=== PATIENT | female | born 1995 | race African-American/Black ===

== ENCOUNTER 2021-03-27 21:48 | Emergency (ER) | payer SELFPAY ==
[~2021-03-27] VITALS: Ht 182.9 cm; Wt 112.7 kg
[2021-03-27] MEDS ORDERED: LORazepam 1 MG TABLET PO ONE (22:45)
[2021-03-27] MEDS ORDERED: ACETAMINOPHEN 500 MG TABLET PO ONE (22:45)
[2021-03-27] MEDS ORDERED: GuaiFENesin/D-METHORPHAN [SUGAR-FREE] 200-20MG/10 ML SYRUP UDCUP PO ONE (22:45)
[2021-03-27] MEDS ORDERED: IBUPROFEN 600 MG TABLET PO ONE (22:45)
[2021-03-27 23:20] LABS: COVID AG,FIA SOURCE NASOPHARYNGEAL
[2021-03-28 01:20] VITALS: BP 110/65
== END 2021-03-28 02:23 | disposition home or self-care (01) ==
LOC: EMS 21:51
DX: J02.9 Acute pharyngitis, unspecified (principal); F41.9 Anxiety disorder, unspecified; M79.10 Myalgia, unspecified site; F17.210 Nicotine dependence, cigarettes, uncomplicated; Z20.822 Contact with and (suspected) exposure to COVID-19
CPT/HCPCS: 81025; 87426; 99284; U0003; Z7502; Z7610